=== PATIENT | male | born 1985 | race Caucasian/White ===

== ENCOUNTER 2016-12-28 11:10 | Emergency (ER) | payer SELFPAY ==
[2016-12-28] MEDS ORDERED: MORPHINE SULFATE 4 MG/1 ML IVP ONE (11:16)
[2016-12-28] MEDS ORDERED: Sodium Chloride 0.9% 1,000 ML PRIMARY IV ONE (11:16)
[2016-12-28] MEDS ORDERED: ONDANSETRON 4 MG/2 ML VIAL IVP ONE (11:16)
[2016-12-28 11:23] VITALS: RESP 20; TEMP 98.6
--- NOTE | 2016-12-28 11:23 | PDOC ---
Abdomen/Flank HPI - General Chief Complaint: Abdomen Pain Stated Complaint: ABD PAIN Date Seen by Provider: 12/28/16 Time Seen by Provider: 11:18 Source: POSITIVE: Patient Exam Limitations: POSITIVE: No limitations Nurse's Notes Reviewed & Considered: Yes - History of Present Illness Initial Comments: Patient comes in today with chief complaint of right lower quadrant abdominal pain. The patient began to develop right lower quadrant pain yesterday around noon that was diffuse in nature with a sharp shooting component into the right lower quadrant. His pain has escalated over the last 24 hours so that it is more constant with a waxing and waning component to it and has localized to the right lower quadrant. He had nausea this morning which has since improved he denies any vomiting no diarrhea, no fever chills or sweats, no headache, no chest pain, no cough, no shortness of breath, or rashes. Body Location Affected: REPORTS: Abdomen Timing: REPORTS: Abrupt Duration: <24 hours Severity: Moderate Quality: REPORTS: "Pain", Stabbing, Throbbing Abdominal Pain Onset Location: REPORTS: RLQ Abdominal Pain Radiation: REPORTS: Flank Context: REPORTS: Activity (Worse with activity and better with sitting and leaning forward.), Sitting Modifying Factors: improves with: Remaining Still Associated Symptoms: REPORTS: Nausea, Other (Nausea) Similar Symptoms Previously: No Recent Care Received: REPORTS: Denies Any Prior Injuries Related to Current Complaint?: No - Patient Home Medications Home Medications: Home Medications Calcium Carbonate [Tums] 1 tab PO PRN 12/28/16 - Patient Allergies Allergies/Adverse Reactions: Allergies Allergy/AdvReac Type Severity Reaction Status Date / Time No Known Allergies Allergy Verified 12/28/16 11:12 ROS - Limitations ROS Limitations: No Limitations Constitution: REPORTS: Denies Symptoms Cardiovascular: REPORTS: Denies Cardiac Symptoms Respiratory: REPORTS: Denies Resp Symptoms Neurological: REPORTS: Denies Neuro Symptoms Gastrointestinal: REPORTS: Abdominal Pain, Nausea Endocrine: REPORTS: Denies Symptoms Musculoskeletal: REPORTS: Back Pain Genitourinary: REPORTS: Denies Symptoms Eyes: REPORTS: Denies Symptoms ENT: REPORTS: Denies Symptoms Skin: REPORTS: Denies Skin Symptoms Lympathic: REPORTS: Denies Lympathic Symptoms Immunologic: POSITIVE: Denies Symptoms Psychiatric: POSITIVE: Denies Psych Symptoms Abdominal/Flank Pain PE - General Appearance General Appearance: POSITIVE: Alert - HEENT HEENT: POSITIVE: Head Inspection Nml, Eyes Inspection Nml, Ears Inspection Nml, Nose Inspection Nml, PERRL, EOMI - Neck Neck: POSITIVE: Normal Inspection, No Apparent Injury - Respiratory Respiratory: POSITIVE: No Respiratory Distress, Breath Sounds Normal, Chest Non- Tender - Cardiovascular Cardiovascular: POSITIVE: Regular Rate and Rhythm, Heart Sounds Normal - Chest Chest: POSITIVE: Non Tender - Abdomen Abdomen: Soft: (All Quadrants), Normal Bowel Sounds: (All Quadrants), Denies Tenderness: (LLQ), (LUQ), (RUQ), No Splenomegaly: (All Quadrants), No Hepatomegaly: (All Quadrants), No Guarding: (LLQ), (LUQ), (RUQ), No Rebound: ( RUQ), (LUQ), (LLQ), Tenderness Noted: (RLQ), Guarding: (RLQ), Rebound: (RLQ) - Back Back: POSITIVE: Normal Inspection - Skin Skin: POSITIVE: Intact, Normal For Race, Warm, Dry, No Rash - Extremities Extremity: Non-Tender: (All Extremities), Normal ROM: (All Extremities), Normal Inspection: (All Extremities) - Neurological Neurological: POSITIVE: Affect Apporpriate, Oriented X3, Motor Normal, Sensation Normal - Psychological Psychiatric: POSITIVE: Affect Appropriate, Mood Appropriate Abdomen Progress - Results Reviewed by me Xrays/CTs/US Reviewed by me: Yes Discussed with Radiologist: Yes Lab Results Reviewed: Yes Lab Results:: Laboratory Results 12/28/16 Range/Units 11:26 WBC 5.57 (4.8-10.8) 10^3/uL RBC 5.22 (4.70-6.10) 10^6/uL Hgb 16.3 (14.0-18.0) g/dL Hct 46.2 (42.0-52.0) % MCV 88.5 (80-90) FL MCH 31.2 H (27-31) PG MCHC 35.3 (33-37) g/dL RDW Std Deviation 41.5 (39-50) fL RDW Coeff of David 12.8 (11.5-14.5) % Plt Count 231 (140-350) 10*3/uL MPV 9.9 (7.4-12.2) FL Immature Gran % (Auto) 0.4 (0-5) % Neut % (Auto) 59.2 (50-80) % Lymph % (Auto) 31.2 (10-50) % [place] % (Auto) 5.4 (5-15) % Eos % (Auto) 3.4 (0-8) % Baso % (Auto) 0.4 (0-1) % Immature Gran # (Auto) 0.02 10*3/UL Neut # (Auto) 3.30 10*3/UL Lymph # (Auto) 1.74 10*3/uL [place] # (Auto) 0.30 (0.3-0.8) 10*3/UL Eos # (Auto) 0.19 10*3/UL Baso # (Auto) 0.02 10*3/UL WBC Morphology Comment Normal morphology (NORM) Plt Morphology Comment Normal morphology (NORM) RBC Morph Comment Normal morphology (NORM) Sodium 140 (135-145) meq/L Potassium 4.0 (3.8-5.2) meq/L Chloride 105 (98-112) meq/L Carbon Dioxide 24 (23-33) meq/L Anion Gap 11 (5-20) BUN 12 (7-22) mg/dL Creatinine 1.0 (0.70-1.50) mg/dL Estimated GFR > 60 (>60 ml/min/1.73m(2)) BUN/Creatinine Ratio 12.00 (6-20) Glucose 91 (78-110) mg/dL Calculated Osmolality 289.0 (267-292) mOsm/kg Calcium 9.5 (8.7-10.7) mg/dL Magnesium 2.2 (1.6-2.4) mg/dL Total Bilirubin 0.8 (0.3-1.2) mg/dL AST 39 (21-57) IU/L ALT 30 (21-72) IU/L Alkaline Phosphatase 62 (38-126) IU/L Total Protein 7.2 (6.1-8.0) g/dL Albumin 4.4 (3.5-4.8) g/dL Globulin 2.8 (2.50-4.10) g/dL Albumin/Globulin Ratio 1.50 (1.3-2.0) mg/g - Patient's Progress Pain Medication Addressed: POSITIVE: Yes Re-examine Time: 13:17 Status: POSITIVE: Improved MDM / ED Course: The patient was examined, an IV started, blood drawn and sent to the lab for studies, and CT scan of abdomen and pelvis obtained. Patient received a liter of normal saline, morphine sulfate, and Zofran. After his CT scan and his pain began to return he received 30 mg of IV Toradol. Findings: CBC and CMP are within normal limits. The scan shows no acute intra- abdominal or intrapelvic abnormalities. Assessment: Abdominal pain unknown etiology. Plan: Discharge home, clear liquids for 24 hours, advance diet as tolerated. Tylenol and ibuprofen as needed. - Consult Counseled: POSITIVE: Patient, RE: Lab Results, RE: Radiology Results, RE: DX Patient Care Time - Estimated PCT Patient Care Time (In Minutes): 30 Vital Signs - Recent Vital Signs Vital Signs: Vital Signs (Last 8 hours) Temp Pulse Resp BP Pulse Ox 12/28/16 11:15 98.6 F 77 20 137/91 95 - VS Reviewed Vital Signs Reviewed: Yes Discharge Clinical Impression: Abdominal pain Discharge Disposition: Discharged to Home Condition: Stable Patient Instructions Given at Discharge: Acute Abdominal Pain (ED)
[2016-12-28 11:30] LABS: BASOPHILS # (AUTO) 0.02 10*3/UL; BASOPHILS % (AUTO) 0.4 % (0-1); EOSINOPHILS % (AUTO) 3.4 % (0-8); HEMATOCRIT 46.2 % (42.0-52.0); HEMOGLOBIN 16.3 g/dL (14.0-18.0); IMM GRAN % (AUTO) 0.4 % (0-5); IMM GRAN# (AUTO) 0.02 10*3/UL; LYMPHOCYTES # (AUTO) 1.74 10*3/uL; LYMPHOCYTES % (AUTO) 31.2 % (10-50); MEAN CORPUSCULAR HEMOGLOBIN 31.2 PG (27-31); MEAN CORPUSCULAR HGB CONC 35.3 g/dL (33-37); MEAN PLATELET VOLUME 9.9 FL (7.4-12.2); MONOCYTES % (AUTO) 5.4 % (5-15); NEUTROPHILS % (AUTO) 59.2 % (50-80); RDW COEFFICIENT OF VARIATION 12.8 % (11.5-14.5); RED BLOOD COUNT 5.22 10^6/uL (4.70-6.10); WHITE BLOOD COUNT 5.57 10^3/uL (4.8-10.8)
[2016-12-28 11:31] LABS: PLATELET MORPHOLOGY COMMENT NORMAL MORPHOLOGY (NORM)
[2016-12-28 12:05] LABS: ASPARTATE AMINO TRANSFERASE 39 IU/L (21-57); BILIRUBIN,TOTAL 0.8 mg/dL (0.3-1.2); BLOOD UREA NITROGEN 12 mg/dL (7-22); CALCIUM 9.5 mg/dL (8.7-10.7); CHLORIDE 105 meq/L (98-112); EST GLOMERULAR FILTRATION > 60 (>60 ml/min/1.73m(2)); GLUCOSE 91 mg/dL (78-110); MAGNESIUM 2.2 mg/dL (1.6-2.4); SODIUM 140 meq/L (135-145); TOTAL PROTEIN 7.2 g/dL (6.1-8.0)
--- NOTE | 2016-12-28 13:09 | DI ---
CT ABDOMEN SCAN WITH IV CONTRAST, 12/28/2016 11:16 AM : Clinical History: Right lower quadrant pain. Previous Exam: None at this facility. Scans are performed from the lower lung bases through the liver and kidneys with IV contrast. 95 ml o f Isovue 300 was injected IV. The lung bases are clear. The liver is normal. The gallbladder is grossly normal. There is no abnorma lity of the spleen, pancreas, and adrenal glands. Both kidneys are normal in size, shape, position an d contour. There is no left hydronephrosis or hydroureter. The right kidney has mild pelviectasis wit hout caliectasis with a normal caliber of the right ureter. This is consistent with a congenital mild low-grade ureteropelvic junction stenosis. No renal or ureteral calculi are present. There are no ab normal retrocrural or periaortic nodes. No ascites is present. READING: Normal CT abdomen scan. CT PELVIS SCAN WITH IV CONTRAST, 12/28/2016 11:16 AM: Clinical History: See above. Previous Exam: None at this facility. Scans are performed from just superior to the umbilicus to the symphysis pubis with IV contrast. This is the same bolus of contrast used for the CT scans of the abdomen. Scans through the lower abdomen and pelvis show no masses or abnormal fluid collections. There is no adenopathy. The appendix is not visualized but there is no inflammatory mass either in the cecal tip or in the right lower quadrant. The small bowel, terminal ileum, and ileocecal valve are normal. The colon is also normal. There are no hernias. READING: Normal CT scan of the pelvis. The appendix is not visualized but there is no inflammatory mass either in the cecal tip or in the right lower quadrant.
[2016-12-28] MEDS ORDERED: KETOROLAC 30 MG/1 ML VIAL IVP ONE (13:16)
== END 2016-12-28 13:45 | disposition home or self-care (01) ==
LOC: ER 11:10
DX: R10.31 Right lower quadrant pain (principal)
CPT/HCPCS: 74177; 80053; 83735; 85025; 96361; 96374; 96375; 99283 ×2; J1885; J2270; J2405; J7030